=== PATIENT | female | born 1990 | race Caucasian/White ===

== ENCOUNTER 2017-10-26 18:18 | Emergency (ER) | payer OTHER ==
[~2017-10-26] VITALS: Ht 160 cm; Wt 59.6 kg
[2017-10-26 18:35] VITALS: Ht 160 cm; Wt 59.6 kg
[2017-10-26] MEDS ORDERED: SOD CHLORIDE 0.9% 1,000 ML IV STA (20:21)
[2017-10-26] MEDS ORDERED: morphine 4 MG/ML VIAL IV STA (20:21)
[2017-10-26] MEDS ORDERED: ONDANSETRON 4 MG INJ IV STA (20:21)
[2017-10-26] MEDS ORDERED: ACETAMINOPHEN 500 MG TAB PO STA (20:21)
[2017-10-26 20:45] LABS: BASOPHILS % 0.4 % (0.0-2.0); EOSINOPHILS % 0.8 % (0.0-7.0); HEMATOCRIT 37.6 % (37.0-47.0); HEMOGLOBIN 12.4 g/dl (12.0-16.0); LYMPHOCYTES # 1.5 10^3/ul (0.8-2.9); MEAN CORPUSCULAR HEMOGLOBIN 28.6 pg (29.0-33.0); MEAN CORPUSCULAR VOLUME 86.6 fl (82.0-101.0); MEAN PLATELET VOLUME 10.6 fl (7.4-10.4); MONOCYTE # 0.3 10^3/ul (0.3-0.9); MONOCYTES % 6.7 % (0.0-11.0); NEUTROPHILS % 60.9 % (39.0-77.0); PLATELET COUNT 148 10^3/UL (140-415); RED BLOOD COUNT 4.34 10^6/ul (4.20-5.40); RED CELL DISTRIBUTION WIDTH 12.8 % (11.5-14.5)
[2017-10-26 21:03] LABS: ALBUMIN 4.5 g/dl (3.3-4.9); ALBUMIN/GLOBULIN RATIO 1.32; BILIRUBIN,INDIRECT 0.9 mg/dl (0-1.1); BILIRUBIN,TOTAL 0.9 mg/dl (0.2-1.3); CALCIUM 9.2 mg/dl (8.4-10.2); CREATININE 0.43 mg/dl (0.44-1.00); POTASSIUM 3.7 mmol/L (3.5-5.1); TOTAL PROTEIN 7.9 g/dl (6.1-8.1)
[2017-10-26 21:32] LABS: ADD UMIC YES; UR ASCORBIC ACID NEGATIVE (NEGATIVE); UR BILIRUBIN (Dip) NEGATIVE (NEGATIVE); UR BLOOD (Dip) 3+ mg/dL (NEGATIVE); UR CLARITY CLEAR (CLEAR); UR COLOR YELLOW (YELLOW); UR GLUCOSE (Dip) NEGATIVE (NEGATIVE); UR KETONES (Dip) 1+ mg/dL (NEGATIVE); UR LEUKOCYTE ESTERASE (Dip) TRACE Leu/ul (NEGATIVE); UR MUCUS FEW /HPF (NONE SEEN); UR NITRITE (Dip) NEGATIVE (NEGATIVE); UR RBC > 182 /HPF (0-5); UR SPECIFIC GRAVITY (Dip) 1.014 (1.003-1.030); UR TOTAL PROTEIN (Dip) NEGATIVE (NEGATIVE); UR UROBILINOGEN (Dip) NEGATIVE (NEGATIVE)
--- NOTE | 2017-10-26 21:32 | ERD ---
ER Documentation Chief Complaint Chief Complaint Pt c/o RLQ pain that radiates to umbilicus to epigastric started yesterday HPI This a 26-year-old female who presents the emergency department today complaining of abdominal pain that started last night at 5 PM. States that yesterday she took aspirin but no medicine today. Denies any fevers or chills, dysuria. States she does have some nausea. States she is currently on her menstrual cycle. ROS All systems reviewed and are negative except as per history of present illness. Medications Home Meds Active Scripts Ondansetron Hcl* (Zofran*) 4 Mg Tablet, 4 MG PO Q6H for NAUSEA AND/OR VOMITING, #30 TAB Prov:ANA FERRARA PA-C 10/26/17 Tramadol HCl (Tramadol HCl) 50 Mg Tablet, 50 MG PO Q4 Y for PAIN, #20 TAB Prov:ANA FERRARA PA-C 10/26/17 Naproxen* (Naprosyn*) 500 Mg Tablet, 500 MG PO BID Y for PAIN AND/OR INFLAMMATION, #30 TAB Prov:ANA FERRARA PA-C 10/26/17 PMhx/Soc Medical and Surgical Hx: pt denies Medical Hx, pt denies Surgical Hx Hx Alcohol Use: No Hx Substance Use: No Hx Tobacco Use: No Smoking Status: Never smoker Physical Exam Vitals Vital Signs Date Time Temp Pulse Resp B/P Pulse Ox O2 Delivery O2 Flow Rate FiO2 10/26/17 23:30 98.9 72 16 124/67 99 Room Air 10/26/17 18:35 100.0 122 16 132/80 99 Physical Exam Const: NAD Head: Atraumatic Eyes: Normal Conjunctiva ENT: Normal External Ears, Nose and Mouth. Neck: Full range of motion..~ No meningismus. Resp: Clear to auscultation bilaterally Cardio: Regular rate and rhythm, no murmurs Abd: Soft,diffuse abdominal tenderness, non distended. Normal bowel sounds Skin: No petechiae or rashes Back: No midline or flank tenderness Ext: No cyanosis, or edema Neur: Awake and alert Psych: Normal Mood and Affect Result Diagram: 10/26/17202910/26/172029 Results 24 hrs Laboratory Tests Test 10/26/17 20:30 10/26/17 20:40 White Blood Count 5.010^3/ul Red Blood Count 4.3410^6/ul Hemoglobin 12.4g/dl Hematocrit 37.6% Mean Corpuscular Volume 86.6fl Mean Corpuscular Hemoglobin 28.6pg Mean Corpuscular Hemoglobin Concent 33.0g/dl Red Cell Distribution Width 12.8% Platelet Count 46985^3/UL Mean Platelet Volume 10.6fl Neutrophils % 60.9% Lymphocytes % 31.0% Monocytes % 6.7% Eosinophils % 0.8% Basophils % 0.4% Nucleated Red Blood Cells % 0.0/100WBC Neutrophils # 3.010^3/ul Lymphocytes # 1.510^3/ul Monocytes # 0.310^3/ul Eosinophils # 0.010^3/ul Basophils # 0.010^3/ul Nucleated Red Blood Cells # 0.010^3/ul Sodium Level 140mmol/L Potassium Level 3.7mmol/L Chloride Level 101mmol/L Carbon Dioxide Level 26mmol/L Anion Gap 17 Blood Urea Nitrogen 8mg/dl Creatinine 0.43mg/dl Glucose Level 86mg/dl Calcium Level 9.2mg/dl Total Bilirubin 0.9mg/dl Direct Bilirubin 0.00mg/dl Indirect Bilirubin 0.9mg/dl Aspartate Amino Transf (AST/SGOT) 38IU/L Alanine Aminotransferase (ALT/SGPT) 71IU/L Alkaline Phosphatase 50IU/L Total Protein 7.9g/dl Albumin 4.5g/dl Globulin 3.40g/dl Albumin/Globulin Ratio 1.32 Lipase 68U/L Urine Color YELLOW Urine Clarity CLEAR Urine pH 6.0 Urine Specific [place] 1.014 Urine Ketones 1+mg/dL Urine Nitrite NEGATIVEmg/dL Urine Bilirubin NEGATIVEmg/dL Urine Urobilinogen NEGATIVEmg/dL Urine Leukocyte Esterase TRACELeu/ul Urine Microscopic RBC > 182/HPF Urine Microscopic WBC 4/HPF Urine Mucus FEW/HPF Urine Hemoglobin 3+mg/dL Urine Glucose NEGATIVEmg/dL Urine Total Protein NEGATIVEmg/dl Current Medications Medications (Trade) Dose Ordered Sig/Candida Route PRN Reason Start Time Stop Time Status Last Admin Dose Admin Sodium Chloride (NS) 1,000 ml @ 1,000 mls/hr Q1H STAT IV 10/26/17 20:21 10/26/17 21:20 DC 10/26/17 20:45 Morphine Sulfate (morphine) 4 mg ONCE STAT IV 10/26/17 20:21 10/26/17 20:22 DC 10/26/17 20:45 Ondansetron HCl (Zofran Inj) 4 mg ONCE STAT IV 10/26/17 20:21 10/26/17 20:22 DC 10/26/17 20:45 Acetaminophen (Tylenol Tab) 500 mg ONCE STAT PO 10/26/17 20:21 10/26/17 20:22 DC 10/26/17 20:45 DIAGNOSTIC IMAGING REPORT Patient: CHANDANA CHAN : 1990 Age: 26 Sex: F MR #: [id number] DOS: 10/26/172020 Ordering MD: ANA FERRARA PA-C [facility] Room/Bed: PROCEDURE: CT abdomen and pelvis without contrast. CLINICAL INDICATION: Abdominal Pain TECHNIQUE: CT scan of the abdomen and pelvis without contrast was performed and is reconstructed at 5 mm contiguous axial intervals from the dome of the diaphragm to the inferior pubic rami.. The patient was scanned without intravenous contrast. Sagittal and coronal reformatted images were obtained from the axial source images. The calculated radiation dose measures 277 mGy centimeters. The CTDI measures 5 mGy. Individualized dose optimization technique was used for the performance of this exam. This included 1. Automated exposure control. 2. Adjustment of the mA and / or kV according to the patient's size. 3. Use of iterative reconstructed technique. COMPARISON: None. FINDINGS: The lung bases are clear of any infiltrate or nodule. No effusion is seen. The liver is of normal size, contour and attenuation with no mass or ductal dilatation. No gallstones are visualized. No splenic, adrenal or pancreatic abnormalities present. Kidneys are of normal size and contour. No hydronephrosis, calculus or masses seen. Ureters are of normal course and caliber with no stone. No bladder mass or stone is present. Uterus is unremarkable. No adnexal mass is seen. There is no aneurysm. No adenopathy is present. No bowel mass or obstruction is present. The appendix is normal. No phlegmon , ascites or pneumoperitoneum is visualized. The osseous structures are intact. IMPRESSION: No evidence of urolithiasis, obstructive uropathy, diverticulitis or appendicitis. .Stephon Marquez MD, MD Date Time Electronically viewed and signed by .Stephon Marquez MD, MD on 10/26/2017 22: 14 .A/ CC: ANA FERRARA PA-C Procedures/MDM This is a 26-year-old female presents emergency department today complaining of abdominal pain that started last night. On physical exam patient had a low- grade temperature of 100.0 and she was tachycardic. Patient had diffuse abdominal pain on physical exam and therefore did obtain laboratory work as well as imaging. laboratory workup shows no elevated white blood cell count. She is not anemic. Platelets are within normal limits. Electrolytes are within normal limits. Glucose is within normal limits. ALT is very mildly elevated otherwise electro lites are within normal limits. Lipase is within normal limits. UA is negative for infection. There is greater than 182 microscopic red blood cells. Patient is currently on her menstrual cycle. Urine test is negative CT abdomen pelvis noncontrast shows no evidence of urolithiasis, obstructive uropathy, diverticulitis or appendicitis. There is no adnexal mass seen uterus is unremarkable. She was given Zofran, Tylenol and morphine here in the emergency department patient reported feeling complete resolution of pain. She was sitting up in the bed talking her friends. Symptoms at this time is consistent with abdominal pain of uncertain etiology however at this time there is no indication for acute surgical abdomen. Do not feel the patient requires further workup or imaging. Patient was given a prescription for tramadol, Naprosyn and Zofran for home. At this time the patient is stable for discharge and outpatient management. Patient should follow up with their PCP in the next 1-2 days. They may return to the emergency department sooner for any persistent or worsening of symptoms. Patient understood and agreed with the plan. Departure Diagnosis: Primary Impression: Abdominal pain Abdominal location: generalized Qualified Code: R10.84 - Generalized abdominal pain Condition: Fair ANA FERRARA PA-C Oct 26, 2017 21:32
--- NOTE | 2017-10-26 22:14 | RADRPT ---
PROCEDURE: CT abdomen and pelvis without contrast. CLINICAL INDICATION: Abdominal Pain TECHNIQUE: CT scan of the abdomen and pelvis without contrast was performed and is reconstructed a t 5 mm contiguous axial intervals from the dome of the diaphragm to the inferior pubic rami.. The p atient was scanned without intravenous contrast. Sagittal and coronal reformatted images were obtai dilcia from the axial source images. The calculated radiation dose measures [address] DI measures 5 mGy. Individualized dose optimization technique was used for the performance of this exam. This included 1. Automated exposure control. 2. Adjustment of the mA and / or kV according to the patient's size. 3. Use of iterative reconstructed technique. COMPARISON: None. FINDINGS: The lung bases are clear of any infiltrate or nodule. No effusion is seen. The liver is of normal size, contour and attenuation with no mass or ductal dilatation. No gallston es are visualized. No splenic, adrenal or pancreatic abnormalities present. Kidneys are of normal size and contour. No hydronephrosis, calculus or masses seen. Ureters are o f normal course and caliber with no stone. No bladder mass or stone is present. Uterus is unremarka ble. No adnexal mass is seen. There is no aneurysm. No adenopathy is present. No bowel mass or obstruction is present. The appendix is normal. No phlegmon, ascites or pneumop eritoneum is visualized. The osseous structures are intact. IMPRESSION: No evidence of urolithiasis, obstructive uropathy, diverticulitis or appendicitis. .Stephon Marquez MD, Date Time Electronically viewed and signed by .Stephon Marquez MD, on 10/26/2017 22:14 .A/
[2017-10-26] MEDS ORDERED: NAPR-260 PO (22:52)
[2017-10-26] MEDS ORDERED: TRAM50TA2 PO (22:52)
[2017-10-26] MEDS ORDERED: ONDA4TAB8 PO (22:53)
[2017-10-26 23:30] VITALS: BP 124/67; PULSE 72; RESP 16; TEMP 98.9
== END 2017-10-26 23:30 | disposition home or self-care (01) ==
LOC: FTE 18:18
DX: R10.84 Generalized abdominal pain (principal); R11.0 Nausea
CPT/HCPCS: 36415; 74176; 80053; 81001; 83690; 85025; 96374; 96375; 99285; J2270; J2405; J7030